=== PATIENT | female | born 1990 | race Caucasian/White ===

== ENCOUNTER 2016-09-21 06:10 | Emergency (ER) | payer OTHER ==
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
[~2016-09-21 06:10] MED LIST: AMOXICILLIN875 MG PO; BIRTH CONTROL PILL PO; CIPRO PO; NO MEDICATIONS; NORCO 5/325 TAB1 TAB PO; PEN-VEE K PO; PERCOCET 5-3251 TAB PO; PERCOCET 5/321 UDTAB PO; PHENERGAN25 MG PO; PRENATAL1 TA1; PRENATAL1 TA1 PO; ULTRAM PO; VICODIN 5/500 T1 TAB PO; VOLTAREN75 MG PO
== END 2016-09-21 06:25 | disposition home or self-care (01) ==
LOC: CED 06:10
DX: S62.323A Displaced fracture of shaft of third metacarpal bone, left hand, initial encounter for closed fracture (principal); F17.210 Nicotine dependence, cigarettes, uncomplicated; V43.52XA Car driver injured in collision with other type car in traffic accident, initial encounter
CPT/HCPCS: 29125; 73110; 99283